=== PATIENT | male | born 1990 ===

== ENCOUNTER 2023-12-08 08:25 | Outpatient (AMB) | payer BC, SELFPAY ==
--- NOTE | 2023-12-08 08:46 | AM.OFFWIN_ITS ---
Intake Vital Signs 3 12/08/23 08:47 Height 6 ft 1 in Weight 164 lb BMI 21.6 BP 136/70 Blood Pressure Location Rt brachial Position Sitting Respiration 14 Pulse 77 Pulse Source Pulse Oximeter Pulse Oximetry (%) 99 Oxygen Delivery Method Room Air Intake Visit Reasons: Rt ankle pain Intake Note: Patient reports he rolled his ankle last night about 11pm. Patient reports right ankle pain and swelling. Patient reports he tried to ice and elevate it. 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 PFSH Social History Patient Tobacco Use Status: Never used Tobacco Review of Systems Const All systems reviewed & are unremarkable except as noted in HPI and below Physical Exam Vital Signs: Last Vital Signs Pulse 77 12/08/23 08:47 Resp 14 12/08/23 08:47 BP 136/70 12/08/23 08:47 Pulse Ox 99 12/08/23 08:47 Oxygen Delivery Method Room Air 12/08/23 08:47 BMI result Body Mass Index 21.6 Extrem Ankle/foot/toe images: 2 1. pain w palpation and edema neurovasc intact antalgic gait favoring R foot 2. ankle immobilizer placed at time of visit Assessment & Plan Assessment & Plan (1) Sprain of right ankle: Code(s): S93.401A - Sprain of unspecified ligament of right ankle, initial encounter Qualifiers: Encounter type: initial encounter Involved ligament of ankle: u nspecified ligament Qualified Code(s): S93.401A - Sprain of unspecified ligament of right ankle, initial encounter Plan: . Medications: New 2 meloxicam 15 mg PO DAILY 30 tabs 0RF Patient Instructions: Offered x-ray as well as referral to Orthopedics for evaluation and treatment. Patient prefers conservative measures. Would like to hold off on x-ray and referral at this time. Advised to take meloxicam 1 tab daily with food. If breakthrough pain use Tylenol. Elevate the ankle as much as possible. Apply ice. Use the ankle immobilizer during the day when he is walking. Maninder wrap given to him as well to use at bedtime as needed. Gentle [id number] exercises encouraged. Educated to seek care if worsening pain, swelling, redness of joint. Educated about the prolonged healing time with sprains and strains. Coding Level of Care Code Est Pt Level 4 (76333) Diagnoses Sprain of right ankle, unspecified ligament, initial encounter S93.401A Encounter type: initial encounter Involved ligament of ankle: unspecified ligament
[2023-12-08 08:47] VITALS: BP 136/70; PULSE 77; RESP 14; O2SAT 99; BMI 21.6
== END 2023-12-08 09:18 | disposition home or self-care (01) ==
PROVIDERS: Visit Provider Nurse Practitioner Family
DX: S93.401A Sprain of unspecified ligament of right ankle, initial encounter (principal)
CPT/HCPCS: 99214